=== PATIENT | female | born 1945 | race Hispanic/Latino ===

== ENCOUNTER → 2023-05-28 | Outpatient (CLI) | payer OTHER ==
[~2023-05-28] MED LIST: AMLO-258 PO; ASPI-556 PO; CHOL200074 PO; DICY20TA3 PO; METO-409 PO
== END | disposition home or self-care (01) ==
LOC: RAH 13:33
PROVIDERS: ATTEND Student in an Organized Health Care Education/Training Program
DX: Z01.818 Encounter for other preprocedural examination (principal); N18.6 End stage renal disease
CPT/HCPCS: 93970

== ENCOUNTER → 2023-07-23 | Outpatient (CLI) | payer OTHER ==
[~2023-07-23] VITALS: Ht 151.1 cm; Wt 85.5 kg
[~2023-07-23] MED LIST changes: +FOLI0.8T22 PO; +IRON PO; +SODI650T PO; +[UNRECOGNIZED DRUG - CODE] IJ
[2023-07-23 15:19] VITALS: BP 150/75; PULSE 58; RESP 17
[2023-07-23 15:27] LABS: BASOPHILS # (AUTO) 0.05 K/uL (0.00-0.20); BASOPHILS % (AUTO) 0.6 % (0.0-5.0); EOSINOPHILS # (AUTO) 0.07 K/uL (0.00-0.70); EOSINOPHILS % (AUTO) 0.9 % (0.0-8.0); HEMATOCRIT 33.3 % (36-48); IMMATURE GRANULOCYTE ABSOLUTE 0.02 K/uL (0-1); LYMPHOCYTES # (AUTO) 2.8 K/uL (1.0-4.8); LYMPHOCYTES % (AUTO) 33.9 % (21.0-51.0); MEAN CORPUSCULAR HEMOGLOBIN 31.3 pg (27.0-33.0); MEAN CORPUSCULAR HGB CONC 31.8 g/dL (32.0-36.0); MEAN CORPUSCULAR VOLUME 98.2 fL (79-99); MONOCYTES # (AUTO) 0.6 K/uL (0.1-1.0); NEUTROPHILS # (AUTO) 4.7 K/uL (1.8-7.7); NEUTROPHILS % (AUTO) 57.4 % (40.0-77.0); PLATELET COUNT (AUTO) 242 K/uL (130-400); RED BLOOD CELL COUNT(AUTO) 3.39 MIL/uL (4.00-5.50); RED CELL DISTRIBUTION WIDTH 15.3 % (11.0-15.5); WHITE BLOOD COUNT (AUTO) 8.1 K/uL (4.8-10.8)
[2023-07-23 15:41] LABS: CREATININE 6.2 mg/dL (0.5-1.5); POTASSIUM 5.1 mmol/L (3.5-5.1)
[2023-07-23 15:42] LABS: INR < 0.93 (0.85-1.15); PROTHROMBIN TIME 10.2 SEC (9.6-11.6)
[2023-07-23 15:43] LABS: PARTIAL THROMBOPLASTIN TIME 27.3 SEC (26.3-35.5)
== END | disposition home or self-care (01) ==
LOC: DAH 10:00 → EDSTATUS 07-26 12:15
PROVIDERS: ATTEND Student in an Organized Health Care Education/Training Program
DX: I12.0 Hypertensive chronic kidney disease with stage 5 chronic kidney disease or end stage renal disease (principal); N18.6 End stage renal disease; Z53.8 Procedure and treatment not carried out for other reasons; Z90.710 Acquired absence of both cervix and uterus; Z82.49 Family history of ischemic heart disease and other diseases of the circulatory system
CPT/HCPCS: 86900; 80048; 85025; 85610; 85730; 86850; 86901; 36415; 93005; A6260

== ENCOUNTER 2023-08-13 06:41 | Day surgery (SDC) | payer OTHER ==
[2023-08-09 14:19] LABS: BASOPHILS # (AUTO) 0.04 K/uL (0.00-0.20); BASOPHILS % (AUTO) 0.5 % (0.0-5.0); EOSINOPHILS # (AUTO) 0.04 K/uL (0.00-0.70); EOSINOPHILS % (AUTO) 0.5 % (0.0-8.0); HEMATOCRIT 34.7 % (36-48); IMMATURE GRANULOCYTE ABSOLUTE 0.03 K/uL (0-1); LYMPHOCYTES # (AUTO) 2.3 K/uL (1.0-4.8); LYMPHOCYTES % (AUTO) 29.2 % (21.0-51.0); MEAN CORPUSCULAR HEMOGLOBIN 31.2 pg (27.0-33.0); MEAN CORPUSCULAR HGB CONC 31.7 g/dL (32.0-36.0); MEAN CORPUSCULAR VOLUME 98.3 fL (79-99); MONOCYTES # (AUTO) 0.6 K/uL (0.1-1.0); MONOCYTES % (AUTO) 7.1 % (3.0-13.0); NEUTROPHILS # (AUTO) 4.9 K/uL (1.8-7.7); NEUTROPHILS % (AUTO) 62.3 % (40.0-77.0); PLATELET COUNT (AUTO) 260 K/uL (130-400); RED BLOOD CELL COUNT(AUTO) 3.53 MIL/uL (4.00-5.50); RED CELL DISTRIBUTION WIDTH 15.9 % (11.0-15.5); WHITE BLOOD COUNT (AUTO) 7.8 K/uL (4.8-10.8)
[2023-08-09 14:26] VITALS: BP 154/74; PULSE 54; RESP 18
[2023-08-09 14:27] LABS: CREATININE 5.7 mg/dL (0.5-1.5); POTASSIUM 3.6 mmol/L (3.5-5.1)
[2023-08-09 14:30] LABS: INR <= 0.93 (0.85-1.15); PROTHROMBIN TIME 10.7 SEC (9.6-11.6)
[2023-08-09 14:31] LABS: PARTIAL THROMBOPLASTIN TIME 25.8 SEC (26.3-35.5)
[~2023-08-13] VITALS: Ht 154.9 cm; Wt 83.3 kg
[2023-08-13] VITALS (16 sets, daily range): BP systolic 120–144; BP diastolic 63–72; PULSE 54–90; RESP 15–18
[~2023-08-13 06:41] MED LIST changes: +0.9% NACL 500ML IV.SOLN 500 ML IV ONE; -ASPI-556 PO; +CEFAZOLIN SODIUM 2 GM VIAL ONE; -DICY20TA3 PO
[2023-08-13] MEDS ORDERED: BUPIVACAINE/PF 0.25% 30ML VIAL IJ ONE (07:25)
[2023-08-13] MEDS ORDERED: THROMBIN-JMI 5000 UNIT/VIAL TP ONE ×2 (07:28→08:49)
[2023-08-13] MEDS ORDERED: ROPIVACAINE 0.5% 5MG/ML 30ML ONE ×2 (08:25→08:27)
[2023-08-13] MEDS ORDERED: KETAMINE 50MG/ML SYRINGE 50 MG/ML DISP.SYRIN ONE (08:27)
[2023-08-13] MEDS ORDERED: SUCCINYLCHOLINE CHLORIDE 20 MG/ML 10 ML VIAL ONE (08:27)
[2023-08-13] MEDS ORDERED: PROPOFOL 10 MG/ML 20ML VIAL IV ONE ×2 (08:28→09:31)
[2023-08-13] MEDS ORDERED: MIDAZOLAM HCL 1 MG/ML 2ML VIAL ONE (08:33)
[2023-08-13] MEDS ORDERED: CEFAZOLIN SODIUM 2 GM VIAL IVPB ONE (08:55)
[2023-08-13] MEDS ORDERED: GLYCOPYRROLATE 0.2 MG/ML 5 ML VIAL ONE (08:58)
[2023-08-13] MEDS ORDERED: EPHEDRINE SULFATE 50 MG/ML AMPULE ONE (09:12)
[2023-08-13] MEDS ORDERED: HEPARIN 10,000 UNIT/10ML (1,000 UNIT/ML) VIAL ONE (09:16)
== END 2023-08-13 11:40 | disposition home or self-care (01) ==
LOC: DAH 06:41
PROVIDERS: ATTEND Student in an Organized Health Care Education/Training Program
DX: I12.0 Hypertensive chronic kidney disease with stage 5 chronic kidney disease or end stage renal disease (principal); N18.6 End stage renal disease; I49.3 Ventricular premature depolarization; Z79.899 Other long term (current) drug therapy; Z98.890 Other specified postprocedural states; Z88.2 Allergy status to sulfonamides; Z82.49 Family history of ischemic heart disease and other diseases of the circulatory system; Z99.2 Dependence on renal dialysis
CPT/HCPCS: 80048; 85025; 85610; 85730; 86850 ×2; 86900 ×2; 86901 ×2; 36415 ×2; 93005; 36821; 64415; 84132; A6260; A4663; J7040; J0330; J0665; J3490 ×5; J1644 ×2; J2250; J2704 ×2; J2795 ×2; J0690 ×2; A4649 ×3; C1713 ×2; A4215; A4223; A4657; A4213; A4222; A4221; A4216; A4600; G0168

== ENCOUNTER → 2024-06-27 | Outpatient (CLI) | payer OTHER ==
[~2024-06-27] MED LIST changes: -0.9% NACL 500ML IV.SOLN 500 ML IV ONE; -CEFAZOLIN SODIUM 2 GM VIAL ONE
--- NOTE | 2024-06-27 09:47 | HMCIMG ---
DEXA BONE DENSITY SURVEY REASON: Asymptomatic menopausal state COMPARISON: None TECHNIQUE: DEXA bone densitometry was performed in the lumbar spine and left hip. FINDINGS: Mean bone mass density in the spine is 1.079 g/sq cm, T score 0.3, within normal limits. Femoral neck T score however is -2.3 consistent with osteopenia. IMPRESSION: 1. Osteopenia consistent with a moderate fracture risk.
== END | disposition home or self-care (01) ==
LOC: RAH 08:40
PROVIDERS: ATTEND Internal Medicine
DX: M85.88 Other specified disorders of bone density and structure, other site (principal); Z78.0 Asymptomatic menopausal state
CPT/HCPCS: 77080

== ENCOUNTER 2024-09-25 12:16 | Emergency (ER) | payer OTHER ==
[~2024-09-25] VITALS: Ht 149.9 cm; Wt 72.6 kg
[~2024-09-25 12:16] MED LIST changes: -AMLO-258 PO; +AMLO2.5T4 PO; -CHOL200074 PO; -IRON PO; -METO-409 PO; -SODI650T PO
--- NOTE | 2024-09-25 12:23 | ERN ---
General Chief Complaint: Syncope Stated Complaint: SYNCOPE Time Seen by MD: 12:17 History of Present Illness Initial Comments 79-year-old female brought in by EMS for syncopal episode. Patient was shopping at [employer], she reports she had a syncopal episode. No fall or trauma. Very brief episode. When EMS was evaluated the patient, they attempted orthostatic vital signs on scene and the patient was had another syncopal episode that was witnessed. Patient reports she recently started dialysis about two weeks ago and reports that she thinks they are taking off too much and she feels dehydrated. He denies any fevers, vomiting, chest pain palpitations shortness of breath diarrhea or any other illness or symptoms. Currently she is pain-free on evaluation with stable vital signs. Allergies: Coded Allergies: Sulfa (Sulfonamide Antibiotics) (Unverified Allergy, Mild, RASH, 07/26/17) Home Meds Active Scripts Amlodipine Besylate (Amlodipine Besylate) 2.5 Mg Tablet, 1 TAB PO DAILY for 30 Days, #30 TAB 0 Refills Prov:GRIFFIN DE LA CRUZ 09/19/24 Reported Medications Epoetin Clifton-Epbx (Retacrit) 20,000 Unit/Ml Vial, [address] UNIT IJ Q2WKS, VIAL 07/23/23 Folic Acid/Vitamin B Comp W-C (Inga-Renato Tablet) 0.8 Mg Tablet, 0.8 MG PO DAILY, TAB 07/23/23 Discontinued Reported Medications Sodium Bicarbonate (Sodium Bicarbonate) 650 Mg Tablet, 1300 MG PO BID, TAB 07/23/23 [Iron] No Conflict Check, 1 TAB PO DAILY 07/23/23 Cholecalciferol (Vitamin D3) (Vitamin D-3) 2,000 Unit Capsule, 2000 UNIT PO DAILY, CAP 07/26/17 Metoprolol Succinate (Metoprolol Succinate) 100 Mg Tab.er.24h, 100 MG PO DAILY, TAB 07/26/17 Amlodipine Besylate (Amlodipine Besylate) 10 Mg Tablet, 10 MG PO DAILY, TAB 07/26/17 Past Medical History Past Medical History: Hypertension, Renal Failure Past Surgical History: Hysterectomy ROS Dictation CONSTITUTIONAL: No chills, no fever, no weakness, no diaphoresis, no malaise. HEAD/FACE: No signs of trauma. EENT: No eye pain, no blurred vision, no tearing, no double vision, no ear pain, no ear discharge, no nose pain, no nasal congestion, no throat pain, no throat swelling, no mouth pain. RESPIRATORY: No cough, no orthopnea, no SOB, no stridor, no wheezing. CARDIOVASCULAR: Syncope x2 GASTROINTESTINAL/ABDOMINAL: No abdominal pain, no constipation, no diarrhea, no nausea, no vomiting. GENITOURINARY: No abnormal discharge, no dysuria, no frequent urination, no hematuria. No complaints of pain in the genitals. MUSCULOSKELETAL: No back pain, no gout, no joint pain, no joint swelling, no muscle pain, no muscle stiffness, no neck pain. INTEGUMENTARY: No change in color, no change in hair/nails, no dryness, no lesion, no lumps, no rash. NEUROLOGICAL/PSYCH: No anxiety, not depressed, no emotional problem, no headache, no numbness, no pre-existing deficit, no history of seizures, no tremors, no weakness. HEMATOLOGIC/LYMPHATIC: Not anemic, no history of blood clots, no apparent bleeding, no bruising, glands not swollen. All Systems Negative, Except as Noted. Physical Exam Physical Exam Dictation VITAL SIGNS: Reviewed. GENERAL APPEARANCE: Alert, oriented x3, no acute distress HEAD AND FACE: Non-traumatic. EYES: PERRL, pink conjunctivas, eyelid no trauma, anterior chamber clear. EARS: Pinnas intact and no signs of trauma or erythema. Ear canals clear and no discharge. TMs no erythema. NOSE: No discharge, no bleeding. OROPHARYNX: Mouth normal, teeth no caries, tongue pink. Pharynx clear, no erythema. Tonsils no exudates, no abscesses noted. Mucous membrane moist. NECK: Supple, non-tender, no thyromegaly, no masses, no JVD, no bruits. BREAST: Deferred. CHEST: No tenderness, no crepitus, no paradoxical movement, no retractions. LUNGS: Clear, well-ventilated, symmetric, no rales, no wheezing, no rhonchi, no stridor, good breath sounds bilaterally. HEART: Regular rate, regular rhythm, no murmur, no gallops. VASCULAR: No peripheral edema. ABDOMEN: Soft, positive bowel sounds, nondistended, no guarding, nontender, no rebound, no masses no hepatomegaly, no splenomegaly, no Rascon's sign, no hernias. RECTAL: Deferred. GENITAL: Deferred. NEUROLOGICAL: Normal speech, gross motor function intact, gross sensory function intact. MUSCULOSKELETAL: Neck nontender, full range of motion, back nontender, full range of motion. EXTREMITIES: Nontender, full range of motion. SKIN: Color pink, dry, no turgor, no rash, no lacerations, no abrasions, no contusions. LYMPHATICS: Deferred. Results Laboratory and Microbiology Lab and Micro Result Laboratory Tests Test 09/25/24 12:40 White Blood Count 9.6 K/uL (4.8-10.8) Red Blood Count 2.94 MIL/uL (4.00-5.50) L Hemoglobin 9.3 g/dL (12.0-16.0) L Hematocrit 29.2 % (36-48) L Mean Corpuscular Volume 99.3 fL (79-99) H Mean Corpuscular Hemoglobin 31.6 pg (27.0-33.0) Mean Corpuscular Hemoglobin Concent 31.8 g/dL (32.0-36.0) L Red Cell Distribution Width 15.1 % (11.0-15.5) Platelet Count 234 K/uL (130-400) Mean Platelet Volume 10.1 fL (7.5-10.5) Immature Granulocyte % (Auto) 0.4 % (0-1) Neutrophils (%) (Auto) 64.6 % (40.0-77.0) Lymphocytes (%) (Auto) 19.1 % (21.0-51.0) L Monocytes (%) (Auto) 6.7 % (3.0-13.0) Eosinophils (%) (Auto) 8.9 % (0.0-8.0) H Basophils (%) (Auto) 0.3 % (0.0-5.0) Neutrophils # (Auto) 6.2 K/uL (1.8-7.7) Lymphocytes # (Auto) 1.8 K/uL (1.0-4.8) Monocytes # (Auto) 0.6 K/uL (0.1-1.0) Eosinophils # (Auto) 0.86 K/uL (0.00-0.70) H Basophils # (Auto) 0.03 K/uL (0.00-0.20) Absolute Immature Granulocyte (auto 0.04 K/uL (0-1) Nucleated Red Blood Cells 0.0 % (0.0-0.19) Sodium Level 133 mmol/L (136-145) L Potassium Level 3.8 mmol/L (3.5-5.1) Chloride Level 94 mmol/L (101-111) L Carbon Dioxide Level 31 mmol/L (21-32) Blood Urea Nitrogen 36 mg/dL (7-18) H Creatinine 7.0 mg/dL (0.5-1.0) H Glomerular Filtration Rate Calc 6 mL/min (>90) Random Glucose 144 mg/dL (70-105) H Total Calcium 9.3 mg/dL (8.5-10.1) Total Creatine Kinase 75 U/L (21-232) Troponin I High Sensitivity 26.1 ng/L (4-50) MDM CC: Syncopal episode x2 Historian: Patient Comorbidities: Hypertension, CKD on dialysis Limitations by social determinants of health: None Differential diagnosis: Cardiac syncope, dehydration, vasovagal syncope, too much fluid removal from recent dialysis. Vital signs: Stable, remained stable in the ER. EKG: Sinus rhythm, rate 77, normal axis, good R-wave progression, intervals are stable. No STEMI. Independently interpreted by me. Labs (independently ordered and interpreted by me): No leukocytosis. Macrocytic anemia hemoglobin 9.3, likely baseline for patient. Chemistry panel shows stable electrolytes, creatinine 7 BUN 36. Troponin stable. CXR (independently ordered and interpreted by me ): Cardiomegaly, mild vascular congestion, no pleural effusions no focal infiltrates. No other abnormalities. Treatment in ED: Patient received 250 cc normal saline here in the ER. Re-evaluation: Pleasant feels better. Orthostatic vital signs checked, no longer having any changes. I did offer the patient admission for further observation and treatment, but she prefers to go home at this time. We suspect that too much was removed during dialysis. She was found him very well he was small fluid bolus. We will recommend that she follows up with the PCP. ED Course Orders Procedure Category Date Status Time Cbc With Differential LAB 09/25/24 Complete 12:17 Cardiac Panel LAB 09/25/24 Complete 12:17 Chest 1vw RAD 09/25/24 Resulted 12:17 12 Lead Ekg Tracing- EKG 09/25/24 Complete Technical 12:17 Basic Metabolic Panel LAB 09/25/24 Complete 12:17 Lactated Ringers 500 PHA 09/25/24 Complete Ml (Lactated Ringer 12:30 Current Medications Medications (Trade) Dose Ordered Sig/Love Route PRN Reason Start Time Stop Time Status Last Admin Dose Admin Lactated Ringer's 250 ml @ 0 mls/hr ONCE ONCE IV 09/25/24 12:30 09/25/24 12:31 DC 09/25/24 14:18 Vital Signs Date Time Temp Pulse Resp B/P (MAP) Pulse Ox O2 Delivery O2 Flow Rate FiO2 09/25/24 15:05 97 18 133/58 98 Room Air* 0 21 09/25/24 15:00 86 18 134/56 98 Room Air* 0 21 09/25/24 14:55 97.5 77 18 142/50 98 Room Air* 0 21 09/25/24 14:00 84 18 114/44 98 Room Air* 0 21 09/25/24 13:55 97.5 82 18 118/44 98 Room Air* 0 21 09/25/24 13:50 79 18 133/48 98 Room Air* 0 21 09/25/24 12:18 97.5 78 14 108/42 98 Room Air 0 DX & DISP Disposition: Discharge Departure Impression: Primary Impression: Syncopal episodes Additional Impressions: Dehydration, ESRD (end stage renal disease) on dialysis, Macrocytic anemia Condition: Stable Additional Instructions: Your symptoms are consistent with mild dehydration. Your vital signs has been stable in the ER. Your lab work (CBC, BMP, troponin) is unremarkable. Your chest x-ray and EKG are unremarkable. You received a small fluid bolus (250 cc of lactated Ringer) here in the ER. Your symptoms improved. As we discussed, I suspect that you were removing too much fluids during dialysis. Please return to the ED if you have any concerns. Please discuss your recent ER visit with Dr. Victor and Dr. Oliveira. Referrals: YEVGENIY MENDOZA MD (PCP) LESLEE SUAREZ DO Sep 25, 2024 12:23
--- NOTE | 2024-09-25 12:40 | EKG ---
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
[2024-09-25 12:59] LABS: BASOPHILS # (AUTO) 0.03 K/uL (0.00-0.20); BASOPHILS % (AUTO) 0.3 % (0.0-5.0); EOSINOPHILS # (AUTO) 0.86 K/uL (0.00-0.70); EOSINOPHILS % (AUTO) 8.9 % (0.0-8.0); HEMATOCRIT 29.2 % (36-48); IMMATURE GRANULOCYTE ABSOLUTE 0.04 K/uL (0-1); LYMPHOCYTES # (AUTO) 1.8 K/uL (1.0-4.8); LYMPHOCYTES % (AUTO) 19.1 % (21.0-51.0); MEAN CORPUSCULAR HEMOGLOBIN 31.6 pg (27.0-33.0); MEAN CORPUSCULAR HGB CONC 31.8 g/dL (32.0-36.0); MEAN CORPUSCULAR VOLUME 99.3 fL (79-99); MONOCYTES # (AUTO) 0.6 K/uL (0.1-1.0); MONOCYTES % (AUTO) 6.7 % (3.0-13.0); NEUTROPHILS # (AUTO) 6.2 K/uL (1.8-7.7); NEUTROPHILS % (AUTO) 64.6 % (40.0-77.0); PLATELET COUNT (AUTO) 234 K/uL (130-400); RED BLOOD CELL COUNT(AUTO) 2.94 MIL/uL (4.00-5.50); RED CELL DISTRIBUTION WIDTH 15.1 % (11.0-15.5); WHITE BLOOD COUNT (AUTO) 9.6 K/uL (4.8-10.8)
--- NOTE | 2024-09-25 13:06 | HMCIMG ---
Exam Type: CHEST 1VW Clinical Information: SYNCOPE Comparison: None Findings: Right permacath in place. The lungs are clear of infiltrates. The heart is enlarged. Bony and soft tissue structures of the chest wall are unremarkable. IMPRESSION: Cardiomegaly. Clear lungs.
[2024-09-25 13:08] LABS: POTASSIUM 3.8 mmol/L (3.5-5.1)
[2024-09-25] MEDS: LACTATED RINGERS 500 ML 250 ML IV ONE (14:18)
[2024-09-25 16:32] VITALS: BP 134/47; PULSE 84; RESP 18; TEMP 97.5; O2SAT 98
== END 2024-09-25 17:05 | disposition home or self-care (01) ==
LOC: EDH 12:16
DX: I12.0 Hypertensive chronic kidney disease with stage 5 chronic kidney disease or end stage renal disease (principal); N18.6 End stage renal disease; R55 Syncope and collapse; E86.0 Dehydration; Z99.2 Dependence on renal dialysis; D53.9 Nutritional anemia, unspecified; Z79.899 Other long term (current) drug therapy; Z88.2 Allergy status to sulfonamides; Z90.710 Acquired absence of both cervix and uterus
CPT/HCPCS: 99283; 96360; 71045; 82550; 84484; 80048; 85025; 36415; 93005; J7120

== ENCOUNTER → 2024-11-10 | Outpatient (CLI) | payer OTHER ==
--- NOTE | 2024-11-11 10:40 | HMCSR ---
APPROVED REPORT EXAM: Two-dimensional and M-mode echocardiogram with Doppler and color Doppler. INDICATION ICD: I38 2D Dimensions RVDd3.9 cmLVEF(%)67.8 (>50%)LVED Vol(simp.)112.0 mL IVSd0.8 (0.7-1.1cm)FS(%)38 %LVES Vol(simp.)43.0 mL LVDd4.8 (3.8-5.6cm)LA (2D)3.7 (1.6-4.0cm)LVEF(%, simp.)62 % PWd1.3 (0.7-1.1cm)Ao Root(2D)2.9 (2.0-3.7cm)LA ESV INDEX (BP)41.58 mL/m2 LVDs3.0 (2.5-4.0cm)LVOT diam2.0 (1.8-2.4cm) M-Mode Dimensions EPSS0.5 cm LA (MM)4.2 (1.6-4.0cm) Ao Root(MM)2.7 (2.0-3.7cm) Aortic Valve AoV Vmax2.0 m/Sasha Peak GR16.4 mmHgLVOT Vmax1.5 m/s AoV VTI0.4 mAo Mean GR8.2 mmHgLVOT VTI0.33 m SILVER (VMAX)2.40 cm2Al P1/2T664 msAVA (VTI) 2.4 cm2 Mitral Valve MV E Vmax99.4 cm/sDECEL Pbfo335 ms MV A Mzpf247.5 cm/sP 1/2 T101 ms E/A ratio0.8MVA (PHT)2.2 cm2 TDI E/E' Evfpkq87.9E/E' Swzvipo94.4 Medial E' Peak V5.87 cm/sLateral E' Peak V9.58 cm/s Pulmonary Valve PV Vmax1.2 m/sPV Mean GR3.1 mmHg PV Peak GR5.3 mmHg Tricuspid Valve TR Vmax2.1 m/sRVSP17.3 mmHg TR Peak GR17.3 mmHg Left Ventricle The left ventricle is normal size. There is normal LV segmental wall motion. There is normal left deidra tricular wall thickness. LVEF is 60-65%. Indeterminate diastolic dysfunction. Right Ventricle The right ventricle is normal size. The right ventricular systolic function is normal. Atria The left atrium is mildly dilated. The right atrium size is normal. Aortic Valve The aortic valve is normal in structure. Mild aortic regurgitation. There is no aortic valvular steno sis. Mitral Valve The mitral valve is normal in structure. Mitral regurgitation is mild. There is no mitral valve steno sis. Tricuspid Valve The tricuspid valve is normal in structure. There is no tricuspid valve regurgitation noted. Pulmonic Valve The pulmonary valve is normal in structure. There is no pulmonic valvular regurgitation. Great Vessels The aortic root is normal in size. The IVC is normal in size and collapses >50% with inspiration. Pericardium There is no pericardial effusion. Conclusion LVEF is 60-65%. The left atrium is mildly dilated.
== END | disposition home or self-care (01) ==
LOC: RAH 14:04
PROVIDERS: ATTEND Internal Medicine
DX: I08.0 Rheumatic disorders of both mitral and aortic valves (principal)
CPT/HCPCS: 93306